=== PATIENT | female | born 1965 | race American Indian/Alaskan Native ===

== ENCOUNTER 2018-03-01 15:08 | Emergency (ER) | payer MEDICAID ==
[2018-03-01 15:15] VITALS: RESP 16; TEMP 98.6
[2018-03-01 16:09] LABS: BASO % 0.2 % (0.0-2.0); EOS # 0.1 K/uL (0.0-0.7); EOS % 1.8 % (0.0-4.0); HEMOGLOBIN 13.6 g/dL (12.0-16.0); LYMPH % 13.5 % (20.0-40.0); MEAN CELL VOLUME 95.6 fl (81.0-99.0); MEAN CORPUSCULAR HGB CONC 33.5 g/dL (33.0-37.0); MEAN PLATELET VOLUME 9.7 fl (7.2-11.7); MONO # 0.5 K/uL (0.0-0.8); NEUT % 78.5 % (50.0-75.0); RBC 4.27 Mil/uL (3.80-5.20); RED CELL DISTRIBUTION WIDTH 14.6 % (11.5-14.5); WHITE BLOOD COUNT 7.7 K/uL (4.8-10.8)
--- NOTE | 2018-03-01 16:11 | ED PDOC ---
HPI: Abdomen Time Seen by Provider: 03/01/18 15:53 Chief Complaint (Nursing): Abdominal Pain Chief Complaint (Provider): Abdominal Pain History Per: Patient History/Exam Limitations: no limitations Outside of [place] travel?: No Quality Of Discomfort: Cramping Associated Symptoms: Vomiting. denies: Fever, Chills Exacerbating Factors: denies: Cough Additional Complaint(s): Kevin Ross is a 52 year old female with a past medical history of HTN and opioid dependence, who recently started on methadone program. Patient presents to the emergency department complaining of having vomiting since yesterday around 5pm with over 8-10 episodes of non bilious or bloody vomit. She states she is able to tolerate some fluids and medications. Patient does report to have constipation for the last week as well and has crampy abdominal pain and runny nose. She further reports that she did go to the methadone clinic today to get her dose. She denies any sick contact, travel, fever, chills, or cough. 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 PMD: Master Garcia Past Medical History Reviewed: Historical Data, Nursing Documentation, Vital Signs Vital Signs: Last Vital Signs Temp 98.6 F 03/01/18 15:14 Pulse 80 03/01/18 15:14 Resp 16 03/01/18 15:14 BP 182/120 H 03/01/18 15:14 Pulse Ox 100 03/01/18 15:14 - Medical History PMH: HTN - Surgical History Surgical History: No Surg Hx - Family History Family History: States: Other - Social History Current smoker - smoking cessation education provided: Yes Alcohol: None - Home Medications Home Medications: Ambulatory Orders Medication Instructions Recorded Famotidine [Pepcid] 40 mg PO DAILY PRN #14 tab 03/01/18 Ondansetron ODT [Zofran ODT] 1 odt PO Q6 PRN #20 odt 03/01/18 - Allergies Allergies/Adverse Reactions: Allergies Allergy/AdvReac Type Severity Reaction Status Date / Time No Known Allergies Allergy Verified 03/01/18 15:15 Review of Systems ROS Statement: Except As Marked, All Systems Reviewed And Found Negative Constitutional: Negative for: Fever, Chills ENT: Positive for: Nose Discharge Respiratory: Negative for: Cough Gastrointestinal: Positive for: Vomiting, Abdominal Pain, Constipation Physical Exam - Reviewed Nursing Documentation Reviewed: Yes Vital Signs Reviewed: Yes - Physical Exam Appears: Positive for: In Acute Distress (mild gastrointestinal distress; tired) Head Exam: Positive for: ATRAUMATIC, NORMOCEPHALIC Skin: Positive for: Warm, Dry Eye Exam: Positive for: Conjunctival injection, Other (corneal haziness bilaterally) ENT: Positive for: Pharynx Is (clear; tachy mucous membranes) Neck: Positive for: Painless ROM, Supple Cardiovascular/Chest: Positive for: Regular Rate, Rhythm. Negative for: Murmur Respiratory: Positive for: Normal Breath Sounds. Negative for: Respiratory Di stress Gastrointestinal/Abdominal: Positive for: Normal Exam, Soft. Negative for: Tenderness, Mass, Distended, Guarding, Rebound Back: Positive for: Normal Inspection. Negative for: Muscle Spasm Extremity: Positive for: Normal ROM. Negative for: Deformity Lymphatic: Negative for: Adenopathy Neurologic/Psych: Positive for: Mood/Affect (normal/flat). Negative for: Motor/ Sensory Deficits - Laboratory Results Result Diagrams: 03/01/18 16:04 03/01/18 16:04 - ECG O2 Sat by Pulse Oximetry: 100 (RA) Pulse Ox Interpretation: Normal Medical Decision Making Medical Decision Making: Time: 1600 Impression: vomiting Differential diagnosis includes but is not limited to gastroenteritis, viral syndrome, dehydration, electrolyte abnormalities, opioid withdrawal Plan: --CMP --Lact acid, plasma --Magnesium --Phosphorous --Urine drug screen --ED urine dipstick --CBC with differential --Catapres .2 mg PO --Dextrose 1,000 ml --Pepcid 20 mg IVP --Zofran 8 mg IV --Influenza A B Labs demonstrated slightly low magnesium and potassium levels. Otherwise no clinical abnormalities, supplements were given in ER and patient tolerated PO. Patient will be discharged. Upon provider reevaluation patient is feeling better, is medically stable, and requires no further treatment in the ED at this time. Patient will be discharged home. Counseling was provided and all questions were answered regarding diagnosis and need for follow up with doctor. There is agreement to discharge plan. Return if symptoms persist or worsen. ------- Scribe Attestation: Documented by Nate Roy, acting as a scribe for Kellie Pinedo MD. Provider Scribe Attestation: All medical record entries made by the Scribe were at my direction and person ally dictated by me. I have reviewed the chart and agree that the record accurately reflects my personal performance of the history, physical exam, medical decision making, and the department course for this patient. I have also personally directed, reviewed, and agree with the discharge instructions and disposition. Disposition - Clinical Impression Clinical Impression: Vomiting - Patient ED Disposition Is Patient to be Admitted: No Counseled Patient/Family Regarding: Studies Performed, Diagnosis, Need For Followup, Rx Given - Disposition Referrals: Radha Thao MD [Staff Provider] - 03/02/18 Disposition: Routine/Home Disposition Time: 18:00 Condition: STABLE Prescriptions: Famotidine [Pepcid] 40 mg PO DAILY PRN #14 tab PRN Reason: reflux Ondansetron ODT [Zofran ODT] 1 odt PO Q6 PRN #20 odt PRN Reason: Nausea/Vomiting Instructions: Nausea and Vomiting, Adult (DC)
[2018-03-01 16:20] LABS: ALB/GLOB RATIO 1.1 (1.0-2.1); ALBUMIN 4.4 g/dL (3.5-5.0); ALT/SGPT 40 U/L (9-52); AST/SGOT 39 U/L (14-36); BLOOD UREA NITROGEN 8 mg/dl (7-17); CALCIUM 9.5 mg/dL (8.4-10.2); GFR NON-AFRICAN AMERICAN > 60
[2018-03-01] MEDS ORDERED: Magnesium Oxide 400 mg Tab UD PO STA (17:07)
[2018-03-01] MEDS ORDERED: Potassium Chloride 20 mEq ER Tab PO STA (17:07)
[2018-03-01] MEDS ORDERED: Potassium Chloride 20 mEq ER Tab PO ONE (17:33)
[2018-03-01 18:30] VITALS: BP 132/82; PULSE 70
[2018-03-01 18:44] VITALS: O2SAT 99
== END 2018-03-01 18:27 | disposition home or self-care (01) ==
LOC: H.ER 15:08
DX: R11.10 Vomiting, unspecified (principal)
CPT/HCPCS: 80053; 83605; 83735; 84100; 85025; 87804; 96374; 99284; J2405; J7042